=== PATIENT | female | born 1950 | race Caucasian/White ===

== ENCOUNTER 2024-08-26 12:35 | Outpatient (CLI) | payer MEDICARE, BC, SELFPAY ==
--- NOTE | 2024-08-26 13:00 | MR_ITS ---
[facility] [address] [facility] [address] Phone:?[phone] Fax:?[phone] Referring Physician Information: Derick Rodriguez M.D. [id number] [facility] [address] Phone:?[phone] Fax:?[phone] Patient:Baltazar Zeng D.O.B:?1950 Sex:?Female Phone:?[phone] [facility] MRN:?[id number] Exam Date:?08/26/2024 EXAM: MRI of the RIGHT 3RD FINGER, without contrast CLINICAL INFORMATION: Female, 74 years old, with right 3rd finger lump. INDICATION: Evaluate soft tissues. PRIOR SURGERY: None reported. PLAIN FILMS: None available. COMPARISONS: No prior MRIs available. TECHNICAL INFORMATION: Using a 1.5T MR scanner and a localizing surface coil: sagittals: PD, T2 coronals: PD, T1, T2, STIR axials: PD, T2, PDFS SEDATION: None. CONTRAST: None. FINDINGS: Bones: Unremarkable, without stress/occult fracture, marrow edema or mass. Joints: Intact throughout without pathologic narrowing or effusion. Soft tissues: Approximately 2 x 2 x 4 mm region of hypointense lesion/signal in the ulnar aspect of the 3rd digit at the level of the proximal phalanx (coronal PD series 11 image 6 and sagittal PD series 10 image 4). No discrete soft tissue mass. Tendons: Flexor and extensor tendons are intact, without rupture or tendinopathy, tenosynovitis or longitudinal splitting. Collateral ligaments: Collateral ligamentous structures are intact. IMPRESSION: 1. Somewhat linear region of hypointense signal in the subcutaneous tissues along the ulnar aspect of the 3rd proximal phalanx measuring 2 x 2 x 4 mm. This may reflect a foreign body, granuloma, or localized scarring/fibrosis. Further evaluation with a targeted ultrasound could be helpful. 2. No fracture or osseous stress reaction. 3. No myotendinous abnormality. 4. No ligamentous sprain/tear. BC Electronically signed on 08/27/2024 11:33:00 AM by Hever Fox M.D.
== END 2024-08-26 12:36 | disposition home or self-care (01) ==
LOC: MRI 12:39
PROVIDERS: PCP Nurse Practitioner; Visit Provider Orthopaedic Surgery
DX: R22.31 Localized swelling, mass and lump, right upper limb (principal)
CPT/HCPCS: 73218